=== PATIENT | male | born 1945 | race Caucasian/White ===

== ENCOUNTER → 2017-04-18 | Day surgery (SDC) | payer MEDICARE, OTHER ==
[~2017-04-18] MED LIST: AMLO5TAB2 PO; ASPI1TAB69 PO; CLOP75TA PO; CO Q100C9 PO; EXEN1INJ SQ; FENO50TA PO; FINA5TAB2 PO; GETGO ROLLING W1 MI1; KRIL1CAP9 PO; LACTATED RINGER'S 1,000 ML BAG IV ONE; LEVOTAB PO; METF850T PO; ONDANSETRON HCL 4 MG/2 ML VIAL IV PUSH ONE; OXYC1TAB63 PO; PANT40TA3 PO; PROPOFOL 500 MG/50 ML BTL IV ONE; ROSU20 PO; STOO100C PO; SUCR1TAB PO; TAMS0.4C4 PO; VITA500T49 PO; ZETI10TA5 PO
--- NOTE | 2017-04-18 12:17 | GIPROC ---
[facility] [address], [address] EGD PROCEDURE REPORT EXAM DATE: 04/18/2017 PATIENT NAME: Amando Allen MR #: [id number] BIRTHDATE: 1945 ATTENDING: Arabella Mitchell MD ORDER #: [id number] ROLL REPAIRER: Shonna Thapa CST STATUS: outpatient INDICATIONS: The patient is a 71 yr old male here for an EGD due to history of esophageal reflux PROCEDURE PERFORMED: EGD w/ biopsy MEDICATIONS: None and Per Anesthesia. TOPICAL ANESTHETIC: CONSENT: The patient understands the risks and benefits of the procedure and understands that these risks include, but are not limited to: sedation, allergic reaction, infection, perforation and/or bleeding. Alternative means of evaluation and treatment include, among others: physical exam, x-rays, and/or surgical intervention. The patient elects to proceed with this endoscopic procedure. medical equipment was checked for proper function. Hand hygiene and appropriate measures for infection prevention was taken. After the risks, benefits and alternatives of the procedure were thoroughly explained, Informed consent was verified, confirmed and timeout was successfully executed by the treatment team. The patient was anesthetized with topical anesthesia and the EC-3490Li ([id number]) endoscope was introduced through the mouth and advanced to the second portion of the duodenum. Retroflexed views revealed no abnormalities The gastroscope was then slowly withdrawn and removed. ESOPHAGUS: There was LA Class A esophagitis noted. A biopsy was performed using cold forceps. Sample sent for histology. STOMACH: There was erythematous moderate gastritis in the gastric antrum. A biopsy was performed using cold forceps. DUODENUM: The duodenal mucosa appeared normal. ADVERSE EVENTS: There were no complications. IMPRESSIONS: 1. There was LA Class A esophagitis noted; biopsy was performed 2. There was erythematous gastritis in the gastric antrum; biopsy was performed 3. Normal duodenal mucosa 4. Retroflexed views revealed no abnormalities RECOMMENDATIONS: 1. Await biopsy results. Biopsy results will not be ready for 7-10 days. If you don't hear from us in two weeks, call our office for biopsy results. 2. Anti-reflux regimen 3. Continue PPI PATIENT CONDITION: stable DISPOSITION: Home REPEAT EXAM: Return 1 year EGD pending biopsy results Arabella Mitchell MD eSigned: Arabella Mitchell MD 04/18/2017 12:16 PM cc: [facility] PATIENT NAME: Amando Allen MR#: [id number]
--- NOTE | 2017-04-18 12:35 | GIPROC ---
[facility] [address] [facility], [address] COLONOSCOPY PROCEDURE REPORT EXAM DATE: 04/18/2017 PATIENT NAME: Amando Allen MR #: [id number] BIRTHDATE: 1945 ENDOSCOPIST: Arabella Mitchell MD ORDER #: [id number] RESIDENT SURGEON: Shonna Thapa PULVERIZER STATUS: outpatient INDICATIONS: The patient is a 71 yr old male here for a colonoscopy due to high risk patient with personal history of colonic polyps PROCEDURE PERFORMED: Colonoscopy with biopsy MEDICATIONS: None and Per Anesthesia. PREP QUALITY: The Benge Bowel Prep Score was Right colon 2, Mid colon 2, and Left colon 3. Total = 7. PREP TYPE:GoLytely ESTIMATED BLOOD LOSS: None CONSENT: The patient understands the risks and benefits of the procedure and understands that these risks include, but are not limited to: sedation, allergic reaction, infection, perforation and/or bleeding. Alternative means of evaluation and treatment include, among others: physical exam, x-rays, and/or surgical intervention. The patient elects to proceed with this endoscopic procedure. medical equipment was checked for proper function. Hand hygiene and appropriate measures for infection prevention was taken. After the risks, benefits and alternatives of the procedure were thoroughly explained, Informed consent was verified, confirmed and timeout was successfully executed by the treatment team. A digital exam revealed external hemorrhoids and revealed decreased sphincter tone The EC-3490Li ([id number]) endoscope was introduced through the anus and advanced to the cecum, which was identified by both the appendix and ileocecal valve. The instrument was then slowly withdrawn as the colon was fully examined. COLON FINDINGS: A polypoid shaped flat polyp ranging between 3-5mm in size was found in the ascending colon. Multiple biopsies were performed using cold forceps. Retroflexed views revealed internal hemorrhoids The scope was then completely withdrawn from the patient and the procedure terminated. PROCEDURE WITHDRAWAL TIME:6minutes ADVERSE EVENTS: There were no complications. IMPRESSIONS: 1. A flat polyp ranging between 3-5mm in size was found in the ascending colon; multiple biopsies were performed using cold forceps 2. Retroflexed views revealed internal hemorrhoids 3. Revealed external hemorrhoids 4. Revealed decreased sphincter tone RECOMMENDATIONS: 1. Await biopsy results. Biopsy results will not be ready for 7-10 days. If you don't hear from us in two weeks, call our office for results. 2. Continue surveillance 3. High fiber diet RECALL: Return 3 years Colonoscopy, pending biopsy results Arabella Mitchell MD eSigned: Arabella Mitchell MD 04/18/2017 12:35 PM cc: Xiao Luevano [facility] Pinky and Quinten Blakely M.D.
== END | disposition home or self-care (01) ==
LOC: ESDC 10:37
PROVIDERS: ATTEND Internal Medicine Gastroenterology
DX: K21.9 Gastro-esophageal reflux disease without esophagitis (principal); K20.9 Esophagitis, unspecified; K29.70 Gastritis, unspecified, without bleeding; Z86.010 Personal history of colon polyps; D12.2 Benign neoplasm of ascending colon; K64.8 Other hemorrhoids
CPT/HCPCS: 00740; 00810; 43239; 45380; 88305; J7120; J2405

== ENCOUNTER → 2017-08-13 | Outpatient (CLI) | payer MEDICARE, OTHER ==
[~2017-08-13] MED LIST changes: +ASPI-110 PO; -GETGO ROLLING W1 MI1; -LACTATED RINGER'S 1,000 ML BAG IV ONE; -ONDANSETRON HCL 4 MG/2 ML VIAL IV PUSH ONE; +PERC5TAB12 PO; -PROPOFOL 500 MG/50 ML BTL IV ONE; +RANI150T PO; +TEMA15CA PO; +TIOT1AER INH
[2017-08-13 11:14] LABS: PROTHROMBIN TIME - PATIENT 10.9 SEC (9.8-11.6)
[2017-08-13 11:17] LABS: MEAN CELL VOLUME 88.8 FL (80.0-100.0); MEAN CORPUSCULAR HEMOGLOBIN 29.7 PG (27.0-34.0); MEAN CORPUSCULAR HGB CONC 33.5 % (32.0-36.0); PLATELET COUNT 148 TH/MM3 (150-450); RED BLOOD COUNT 3.94 MIL/MM3 (4.50-5.90); RED CELL DISTRIBUTION WIDTH 19.5 % (11.6-17.2); WHITE BLOOD COUNT 9.6 TH/MM3 (4.0-11.0)
[2017-08-13 11:21] LABS: REVIEW FLAG FINAL
[2017-08-13 11:33] LABS: BICARBONATE 25.1 MEQ/L (21.0-32.0); POTASSIUM 3.8 MEQ/L (3.5-5.1)
--- NOTE | 2017-08-13 11:47 | RADRPT ---
EXAM DATE/TIME: 08/13/2017 11:31 [place] COMPARISON: No previous studies available for comparison. INDICATIONS : Evaluate for pneumonia, pneumothorax, or communicable disease. Pre op Aortic surgery. MEDICAL HISTORY : None. SURGICAL HISTORY : CABG. ENCOUNTER: Initial ACUITY: 1 day PAIN SCORE: 0/10 LOCATION: Bilateral chest FINDINGS: The heart is normal in size. The patient is post median sternotomy. The top 3 sternal wires are no lo nger intact. The lungs are clear. The bony structures are grossly intact. CONCLUSION: 1. No acute cardiopulmonary findings. James Lobo MD on August 13, 2017 at 11:45 Board Certified Radiologist. This report was verified electronically.
[2017-08-13 12:15] LABS: BLOOD, URINE NEG (NEG); COMMENT (UR) CULT NOT INDICATED; CULTURE IF INDICATED CULT NOT INDICATED; GLUCOSE,URINE 150 mg/dL (NEG); HYALINE CAST, URINE 1 /lpf (RARE); KETONE, URINE NEG (NEG); MUCUS URINE FEW /lpf (OCC); NITRITE,URINE NEG (NEG); PH, URINE 5.5 (5.0-8.5); URINE COLOR YELLOW (YELLW/STRAW)
--- NOTE | 2017-08-13 21:01 | EKG ---
Date Performed: 08/13/2017 Time Performed: 10:36:46 PTAGE: 72 years EKG: Sinus rhythm POSSIBLE INFERIOR MYOCARDIAL INFARCTION, PROBABLY OLD BORDERLINE ECG PREVIOUS TRACING : 11/18/2016 10.41 Compared to prior tracing no significant change DOCTOR: Sandra Polanco Interpretating Date/Time 08/13/2017 21:01:23
== END ==
LOC: CPRE 10:12
PROVIDERS: ATTEND Surgery
DX: Z01.812 Encounter for preprocedural laboratory examination (principal); Z01.810 Encounter for preprocedural cardiovascular examination; Z01.811 Encounter for preprocedural respiratory examination; I73.9 Peripheral vascular disease, unspecified; I71.4 Abdominal aortic aneurysm, without rupture
CPT/HCPCS: 36415; 71020; 80048; 81001; 85027; 85610; 93005

== ENCOUNTER 2017-08-20 08:00 | Inpatient (IN) | payer MEDICARE, OTHER ==
[~2017-08-20] VITALS: Ht 167.6 cm; Wt 81.5 kg
[~2017-08-20 08:00] MED LIST changes: -ASPI1TAB69 PO; -PERC5TAB12 PO; -RANI150T PO; -TEMA15CA PO; -TIOT1AER INH
[2017-08-25] VITALS (9 sets, daily range): BP systolic 120–134; BP diastolic 57–62; PULSE 86–94; RESP 16–19; TEMP 98–98.5; O2SAT 95–98
[2017-08-25] MEDS ORDERED: RANI150T PO ×2 (07:45)
[2017-08-25] MEDS ORDERED: SODIUM CHLORID 0.9% 500 ML IV PRN (07:45)
[2017-08-25] MEDS ORDERED: POVIDONE IODINE 5% (ANTISEPSIS KIT) 4 APPLICATIONS EACH NARE PRN (07:45)
[2017-08-25] MEDS ORDERED: CHLORHEXIDINE GLUCONATE 2 % 1 PACK (2 CLOTHS) TOPICAL PRN (07:45)
[2017-08-25] MEDS ORDERED: TIOT1AER INH (07:45)
[2017-08-25] MEDS ORDERED: LACTATED RINGER'S 1000 ML IV PRN (07:45)
[2017-08-25] MEDS ORDERED: TEMA15CA PO (07:45)
[2017-08-25] MEDS ORDERED: INSULIN HUMAN REGULAR 1,000 UNITS/10 ML VIAL SQ PRN (07:45)
[2017-08-25] MEDS ORDERED: METOPROLOL TARTRATE 25 MG TAB PO PRN (07:45)
[2017-08-25] MEDS ORDERED: ACETAMINOPHEN 1000 MG/100 ML 100 ML IV ONE (08:22)
[2017-08-25] MEDS ORDERED: FAMOTIDINE 20 MG/2 ML VIAL ONE (08:23)
[2017-08-25] MEDS ORDERED: MIDAZOLAM HCL 2 MG/2 ML VIAL ONE (08:23)
--- NOTE | 2017-08-25 08:54 | HHI.HP ---
History of Present Illness Chief Complaint: AAA, PAD History of Present Illness 72 yo male with AAA and PAD. S/p L L bypass x 2, most recently in Oct. Has had AAA that is being observed for some time but now is 5.2 cm. After discussion of risks and benefits with the patient, he would like it repaired. In order to place EVAR, he needs R TRAVELING CRANE OPERATOR reconstruction. No interval change in history that would preclude surgery Past/Family/Social History Past Medical History HTN AAA PAD Past Surgical History L LE bypass x 2 Social History nonsmoker Family History NC Home Medications Reported Medications Temazepam (Temazepam) 15 Mg Cap, 15 MG PO HS Y for INSOMNIA, #30 CAP 0 Refills 08/25/17 Tiotropium-Olodaterol Inh (Stiolto Respimat Inh) 2.5-2.5 Mcg/Act Aero, 2 PUFF INH DAILY for COPD, #1 INHALER 0 Refills 08/25/17 Ranitidine (Ranitidine) 150 Mg Tab, 300 MG PO HS for Heartburn Management, #30 TAB 0 Refills 08/25/17 Ranitidine (Ranitidine) 150 Mg Tab, 150 MG PO DAILYAC Y for REFLUX, #30 TAB 0 Refills 08/25/[address] (Aspirin 81) 81 Mg Tabdr, 81 MG PO DAILY, TAB 0 Refills 08/13/17 Amlodipine (Amlodipine) 5 Mg Tab, 2.5 MG PO DAILY for Blood Pressure Management , #30 TAB 0 Refills 11/14/16 Pantoprazole (Pantoprazole) 40 Mg Tab, 40 MG PO BID for Reflux, #30 TAB 0 Refills 11/14/16 Krill Oil (Megared [place]-3 Krill Oil) 500 Mg Cap, 500 MG PO DAILY 11/14/16 Cyanocobalamin (Vitamin B12) 500 Mcg Tab, 1000 MCG PO DAILY, #1 BOTTLE 11/14/16 Clopidogrel (Clopidogrel) 75 Mg Tab, 75 MG PO DAILY for Blood Clot Prevention, # 30 TAB 0 Refills 11/14/16 Fenofibrate (Tricor) 145 Mg Tab, 145 MG PO DAILY, #30 TAB 0 Refills Takw with food. 11/14/16 Finasteride (Finasteride) 5 Mg Tab, 5 MG PO DAILY for Manage Prostate Problems, #30 TAB 0 Refills Do not crush. 12/15/16 Ezetimibe (Zetia) 10 Mg Tab, 10 MG PO HS, #30 TAB 0 Refills 11/14/16 Levocetirizine (Levocetirizine) 5 Mg Tab, 5 MG PO DAILY for Allergy Management, #30 TAB 0 Refills 11/14/16 Docusate Sodium (Stool Softener) 100 Mg Cap, 100 MG PO DAILY 11/14/16 Tamsulosin (Tamsulosin) 0.4 Mg Cap, 0.4 MG PO HS for Manage Prostate Problems, # 30 CAP 0 Refills 11/14/16 Metformin (Metformin) 850 Mg Tab, 850 MG PO BIDPC for Blood Sugar Management, TAB 0 Refills With meals 11/14/16 Rosuvastatin (Crestor) 20 Mg Tab, 20 MG PO HS for Cholesterol Management, #30 TAB 0 Refills 11/14/16 Coenzyme Q10 (Ubidecarenone) (Co Q 10) 100 Mg Cap, 100 MG PO DAILY 11/14/16 Exenatide Pen Inj (Bydureon Pen Inj) 2 Mg Pfpen, 2 MG SQ Q7D for Blood Sugar Management, #4 INJECTION 0 Refills 11/14/16 Discontinued Reported Medications Sucralfate (Sucralfate) 1 Gm Tab, 1 GM PO BID for Duodenal ulcer, #120 TAB 0 Refills on empty stomach 11/14/16 Discontinued Scripts Oxycodone-Acetaminophen (Oxycodone-Acetaminophen) 5-325 mg Tab, 1 TAB PO Q4H Y for PAIN SCALE 1 TO 5 for 30 Days, TAB 0 Refills Prov:Huy Wagner MD 11/21/16 Coded Allergies: Sulfa (Sulfonamide Antibiotics) (Unverified Allergy, Severe, 08/25/17) penicillin G (Unverified Allergy, Severe, 08/25/17) Review of Systems Constitutional: DENIES: Fatigue, Fever Gastrointestinal: DENIES: Abdominal pain Physical Exam Vitals/I&O Date Time Temp Pulse Resp B/P (MAP) Pulse Ox O2 Delivery O2 Flow Rate FiO2 08/25/17 07:45 98.5 72 16 152/77 (102) 96 Neuro: alert, oriented HEENT: anicteric sclera Neck: no JVD Heart: reg rate, no M; S2 split noted Lungs: clear B Abdomen: NT Vascular: palpable femoral pulses Extremities: no lesions Hct 35 plt 148 INR 1.0 cr 1.2 Caprini VTE Risk Assessment Caprini VTE Risk Assessment: Mod/High Risk (score >= 2) Caprini Risk Assessment Model Point Value = 1 Point Value = 2 Point Value = 3 Point Value = 5 Age 41-60 Minor surgery BMI > 25 kg/m2 Swollen legs Varicose veins or History of unexplained or recurrent spontaneous Oral contraceptives or hormone replacement Sepsis (< 1 month) Serious lung disease, including pneumonia (< 1 month) Abnormal pulmonary function Acute myocardial infarction Congestive heart failure (< 1 month) History of inflammatory bowel disease Medical patient at bed rest Age 61-74 Arthroscopic surgery Major open surgery (> 45 min) Laparoscopic surgery (> 45 min) Malignancy Confined to bed (> 72 hours) Immobilizing plaster cast Central venous access Age >= 75 History of VTE Family history of VTE Factor V Leiden Prothrombin [id number] Lupus anticoagulant Anticardiolipin antibodies Elevated serum homocysteine Heparin-induced thrombocytopenia Other congenital or acquired thrombophilia Stroke (< 1 month) Elective arthroplasty Hip, pelvis, or leg fracture Acute spinal cord injury (< 1 month) Prophylaxis Regimen Total Risk Factor Score Risk Level Prophylaxis Regimen 0-1 Low Early ambulation 2 Moderate Order ONE of the following: *Sequential Compression Device (SCD) *Heparin 5000 units SQ BID 3-4 Higher Order ONE of the following medications: *Heparin 5000 units SQ TID *Enoxaparin/Lovenox 40 mg SQ daily (WT < 150 kg, CrCl > 30 mL/min) *Enoxaparin/Lovenox 30 mg SQ daily (WT < 150 kg, CrCl > 10-29 mL/min) *Enoxaparin/Lovenox 30 mg SQ BID (WT < 150 kg, CrCl > 30 mL/min) AND/OR *Sequential Compression Device (SCD) 5 or more Highest Order ONE of the following medications: *Heparin 5000 units SQ TID (Preferred with Epidurals) *Enoxaparin/Lovenox 40 mg SQ daily (WT < 150 kg, CrCl > 30 mL/min) *Enoxaparin/Lovenox 30 mg SQ daily (WT < 150 kg, CrCl > 10-29 mL/min) *Enoxaparin/Lovenox 30 mg SQ BID (WT < 150 kg, CrCl > 30 mL/min) AND *Sequential Compression Device (SCD) Assessment and Plan Plan To OR for R TRAVELING CRANE OPERATOR TEA and patch, then EVAR Pt understands risks, benefits Discharge Planning 2 days [phone] Huy Wagner MD Aug 25, 2017 08:53
[2017-08-25] MEDS ORDERED: HEPARIN SODIUM - IV 10,000 UNITS/10 ML VIAL ONE ×2 (10:07→13:24)
[2017-08-25] MEDS ORDERED: PROTAMINE SULFATE 50 MG/5 ML VIAL ONE (10:07)
[2017-08-25] MEDS ORDERED: BUPIVACAINE HCL PF 0.5% 30 ML VIAL ONE (10:08)
[2017-08-25] MEDS ORDERED: THROMBIN (TOPICAL) 20,000 UNIT SPRAY KIT ONE (10:08)
[2017-08-25] MEDS ORDERED: VANCOMYCIN HCL 1000 MG VIAL ONE (10:30)
[2017-08-25] MEDS ORDERED: ACETYLCYSTEINE 20% ORAL SOLN 4 ML VIAL PO SCH (11:00)
[2017-08-25] MEDS ORDERED: SODIUM BICARBONATE 8.4% INJ 150 MEQ in DEXTROSE 5% IN WATE 1000ML INJ 1,000 ML IV SCH ×2 (11:30)
[2017-08-25] MEDS ORDERED: PHENYLEPHRINE HCL 10 MG/ML VIAL IV ONE (12:00)
[2017-08-25] MEDS ORDERED: SODIUM CHLOR 0.9% 250 ML INJ 500 ML IV ONE (12:00)
[2017-08-25] MEDS ORDERED: LACTATED RINGER'S 1000 ML INJ 1,000 ML IV ONE (12:00)
[2017-08-25] MEDS ORDERED: MORPHINE SULFATE 4 MG/ML INJ IV ONE (12:00)
[2017-08-25] MEDS ORDERED: ROCURONIUM INJ 50 MG/5 ML SYRINGE IV PUSH ONE (12:00)
[2017-08-25] MEDS ORDERED: ONDANSETRON HCL 4 MG/2 ML VIAL IV PUSH ONE (12:00)
[2017-08-25] MEDS ORDERED: PROPOFOL 200 MG/20 ML AMP IV ONE (12:00)
[2017-08-25] MEDS ORDERED: PHENYLEPH/NS 1000 MCG/10 ML SYR IV ONE (12:00)
[2017-08-25] MEDS ORDERED: ePHEDrine/NS 25 MG/5 ML SYR IV ONE (12:00)
[2017-08-25] MEDS ORDERED: SODIUM CHLORID 0.9% 500 ML INJ 500 ML IV ONE (12:00)
[2017-08-25] MEDS ORDERED: NORMOSOL R INJ 2,000 ML IV ONE (12:00)
[2017-08-25] MEDS ORDERED: LIDOCAINE HCL 1% PF 5 ML AMPULE OTHER ONE (12:00)
[2017-08-25] MEDS ORDERED: IOHEXOL 350 MG/ML 50 ML BTL (for RAD DIAG) IVCONTRAST ONE (12:49)
--- NOTE | 2017-08-25 14:31 | HHI.PR ---
cc: Geoffrey Mcgrath MD Immediate Post Op Note Procedure Date: Aug 25, 2017 Pre Op Diagnosis: AAA, PAD Post Op Diagnosis: AAA, PAD Surgeon: Huy Wagner Laborer Wrecking And Salvaging(s): none Procedure: 1. EVAR with Endologix device and aortic cuff 2. U/S access to L MASTER TECHNICIAN 3. R iliofemoral bypass w 8mm Dacron 4. R MASTER TECHNICIAN-SFA bypass w 8mm Dacron 5. R EIA END LATHE OPERATOR (8mm) Findings: successful exclusion of aneurysm patent B renal arteries patent B hypogastric arteries Additional Information: + Doppler signals B LE Complications: none apparent Specimen(s) removed: none for pathology Estimated blood loss: 200mL Anesthesia: General Drains: None Fluids: 2600mL; 1175mL UOP IVF Patient to: PACU Patient Condition: Good Implant/Devices: SEE IMPLANT LOG (if applicable) Date/Time of Procedure: SEE SURGICAL CARE RECORD Huy Wagner MD Aug 25, 2017 14:31
[2017-08-25] MEDS ORDERED: MORPHINE SULFATE 4 MG/ML INJ IV PRN (14:45)
[2017-08-25] MEDS ORDERED: DO NOT ADM ANY ANTICOAGULANT DRUGS PRN (14:57)
[2017-08-25] MEDS ORDERED: PILL SPLITTER OTHER PRN (15:00)
[2017-08-25] MEDS ORDERED: IOHEXOL 300 MG/ML 100 ML BTL (for Rad CT) OTHER ONE (15:05)
[2017-08-25] MEDS: LACTATED RINGER'S 1000 ML INJ 1,000 ML IV SCH ×2 (15:30→16:15)
[2017-08-25] MEDS ORDERED: *morphine SULFATE 8 MG/ML PERIprocedure ONLY ONE ×2 (15:43→15:57)
[2017-08-25] MEDS ORDERED: PANTOPRAZOLE SOD 40 MG DELAYED RELEASE TAB PO ONE (20:57)
[2017-08-25] MEDS ORDERED: DOCUSATE SODIUM 100 MG CAP ONE (20:57)
[2017-08-25] MEDS ORDERED: ATORVASTATIN 40 MG TAB ONE (20:57)
[2017-08-25] MEDS ORDERED: TAMSULOSIN HCL 0.4 MG CAP ONE (20:58)
[2017-08-25] MEDS ORDERED: FAMOTIDINE 20 MG TAB PO SCH (21:00)
[2017-08-25] MEDS ORDERED: TEMAZEPAM 15 MG CAP PO PRN (21:00)
[2017-08-25] MEDS: DOCUSATE SODIUM 100 MG CAP PO SCH (21:16)
[2017-08-25] MEDS: PANTOPRAZOLE SOD 40 MG DELAYED RELEASE TAB PO SCH (21:16)
[2017-08-25] MEDS: EZETIMIBE 10 MG TAB PO SCH (21:16)
[2017-08-25] MEDS: ATORVASTATIN 40 MG TAB PO SCH (21:17)
[2017-08-25] MEDS: TAMSULOSIN HCL 0.4 MG CAP PO SCH (21:17)
[2017-08-26] VITALS (27 sets, daily range): BP systolic 125–164; BP diastolic 64–96; PULSE 82–100; RESP 16–20; TEMP 98.8–100.1; O2SAT 96–97
[2017-08-26] MEDS ORDERED: WATE IV SCH ×2 (00:01)
[2017-08-26] MEDS ORDERED: DEXTROSE 5% IV SCH ×2 (00:01)
[2017-08-26] MEDS ORDERED: SODIUM BICARB IV SCH ×2 (00:01)
[2017-08-26] MEDS: LACTATED RINGER'S 1000 ML INJ 1,000 ML IV SCH (04:21)
[2017-08-26 06:03] LABS: HEMATOCRIT 25.2 % (39.0-51.0); MEAN CELL VOLUME 88.9 FL (80.0-100.0); MEAN CORPUSCULAR HEMOGLOBIN 30.8 PG (27.0-34.0); MEAN CORPUSCULAR HGB CONC 34.6 % (32.0-36.0); PLATELET COUNT 112 TH/MM3 (150-450); RED BLOOD COUNT 2.84 MIL/MM3 (4.50-5.90); RED CELL DISTRIBUTION WIDTH 20.1 % (11.6-17.2); REVIEW FLAG FINAL; WHITE BLOOD COUNT 9.2 TH/MM3 (4.0-11.0)
[2017-08-26 06:26] LABS: BICARBONATE 26.7 MEQ/L (21.0-32.0); POTASSIUM 3.6 MEQ/L (3.5-5.1)
[2017-08-26 06:43] LABS: CALCIUM-PROTEIN CORRECTED 8.1 MG/DL (8.5-10.1)
[2017-08-26] MEDS: ASPIRIN EC 81 MG TABEC PO SCH (08:55)
[2017-08-26] MEDS: amLODIPine BESYLATE 5 MG TAB PO SCH (08:55)
[2017-08-26] MEDS: DOCUSATE SODIUM 100 MG CAP PO SCH ×2 (08:56→21:00)
[2017-08-26] MEDS: FENOFIBRATE 145 MG TAB PO SCH (08:56)
[2017-08-26] MEDS: CLOPIDOGREL 75 MG TAB PO SCH (08:56)
[2017-08-26] MEDS: PANTOPRAZOLE SOD 40 MG DELAYED RELEASE TAB PO SCH ×2 (08:56→21:00)
[2017-08-26] MEDS ORDERED: LEVOCETIRIZINE 5 MG PO SCH (09:00)
[2017-08-26] MEDS ORDERED: RESPIMAT INH SCH (09:00)
[2017-08-26] MEDS ORDERED: KRILL OIL 500 MG PO SCH (09:00)
[2017-08-26] MEDS ORDERED: NON-FORMULARY DRUG (Coenzyme Q10 (Ubidecarenone) (Co Q 10) 100 MG) PO SCH (09:00)
[2017-08-26] MEDS ORDERED: STIOLTO INH SCH (09:00)
--- NOTE | 2017-08-26 09:25 | PD.VS.PN ---
Subjective POD #: 1 Procedure(s): EVAR, R groin reconstruction Subjective/Hospital Course feels well, c/o soreness in R groin feet ok Objective Vitals/I&O Date Time Temp Pulse Resp B/P (MAP) Pulse Ox O2 Delivery O2 Flow Rate FiO2 08/26/17 07:15 96 Nasal Cannula 2.00 08/26/17 07:15 100.1 86 20 164/74 (104) 96 08/26/17 07:15 88 08/26/17 06:03 86 08/26/17 05:05 90 08/26/17 04:00 90 08/26/17 03:00 82 08/26/17 03:00 96 Nasal Cannula 2.00 08/26/17 03:00 99.0 92 16 142/70 (94) 96 08/26/17 02:02 90 08/26/17 01:00 92 08/26/17 00:00 90 08/25/17 23:00 98.5 90 16 126/62 (83) 95 08/25/17 23:00 95 Nasal Cannula 2.00 08/25/17 23:00 90 08/25/17 22:20 16 08/25/17 22:00 88 08/25/17 21:00 86 08/25/17 20:00 94 08/25/17 19:00 98 Nasal Cannula 2.00 08/25/17 19:00 86 08/25/17 19:00 98.0 94 16 134/61 (85) 98 08/25/17 18:00 92 08/25/17 17:00 89 08/25/17 16:30 90 08/25/17 16:10 98.4 94 19 120/57 (78) 97 08/25/17 16:10 97 Nasal Cannula 2.00 08/25/17 15:45 91 18 131/60 (83) 99 Nasal Cannula 2 08/25/17 15:30 93 18 136/56 (82) 99 Nasal Cannula 2 08/25/17 15:15 93 18 142/65 (90) 99 Nasal Cannula 2 08/25/17 14:57 98.3 100 18 109/59 (76) 97 Nasal Cannula 2 08/26/17 08/26/17 08/26/17 07:00 15:00 23:00 Intake Total 1030 ml Output Total 500 ml Balance 530 ml Exam: R groin skin vac in place groin soft palpable L DP Biphasic R PT Laboratory Laboratory Tests Test 08/26/17 05:24 White Blood Count 9.2 Red Blood Count 2.84 Hemoglobin 8.7 Hematocrit 25.2 Mean Corpuscular Volume 88.9 Mean Corpuscular Hemoglobin 30.8 Mean Corpuscular Hemoglobin Concent 34.6 Red Cell Distribution Width 20.1 Platelet Count 112 Mean Platelet Volume 7.8 Blood Urea Nitrogen 9 Creatinine 1.03 Random Glucose 178 Total Protein 5.8 Calcium Level 7.4 Sodium Level 138 Potassium Level 3.6 Chloride Level 104 Carbon Dioxide Level 26.7 Anion Gap 7 Estimat Glomerular Filtration Rate 71 Protein Corrected Calcium 8.1 Assessment and Plan Plan POD#1 s/p R groin reconstruction, EVAR 1. Reg diet, meds 2. HL IVF 3. D/C [place] 4. OOB TC/PT Discharge Planning 2-3 days Huy Wagner MD Aug 26, 2017 09:25
--- NOTE | 2017-08-26 09:29 | PD.VS.PN ---
Subjective POD #: 1 Procedure(s): EVAR with Endologix device and aortic cuff R iliofemoral bypass R ESCALATOR SERVICE MECHANIC-SFA bypass R EIA LABELER Subjective/Hospital Course Pt c/o fever, flatulence and generalized pain [place] intact Objective Vitals/I&O Date Time Temp Pulse Resp B/P (MAP) Pulse Ox O2 Delivery O2 Flow Rate FiO2 08/26/17 07:15 96 Nasal Cannula 2.00 08/26/17 07:15 100.1 86 20 164/74 (104) 96 08/26/17 07:15 88 08/26/17 06:03 86 08/26/17 05:05 90 08/26/17 04:00 90 08/26/17 03:00 82 08/26/17 03:00 96 Nasal Cannula 2.00 08/26/17 03:00 99.0 92 16 142/70 (94) 96 08/26/17 02:02 90 08/26/17 01:00 92 08/26/17 00:00 90 08/25/17 23:00 98.5 90 16 126/62 (83) 95 08/25/17 23:00 95 Nasal Cannula 2.00 08/25/17 23:00 90 08/25/17 22:20 16 08/25/17 22:00 88 08/25/17 21:00 86 08/25/17 20:00 94 08/25/17 19:00 98 Nasal Cannula 2.00 08/25/17 19:00 86 08/25/17 19:00 98.0 94 16 134/61 (85) 98 08/25/17 18:00 92 08/25/17 17:00 89 08/25/17 16:30 90 08/25/17 16:10 98.4 94 19 120/57 (78) 97 08/25/17 16:10 97 Nasal Cannula 2.00 08/25/17 15:45 91 18 131/60 (83) 99 Nasal Cannula 2 08/25/17 15:30 93 18 136/56 (82) 99 Nasal Cannula 2 08/25/17 15:15 93 18 142/65 (90) 99 Nasal Cannula 2 08/25/17 14:57 98.3 100 18 109/59 (76) 97 Nasal Cannula 2 08/26/17 08/26/17 08/26/17 07:00 15:00 23:00 Intake Total 1030 ml Output Total 500 ml Balance 530 ml Exam: GENERAL: A&OX3, GCS15,NAD SKIN: Warm and dry Provena wound vac to right groin in place w/o hematoma CARDIOVASCULAR: +S1,S2 GASTROINTESTINAL: S/NT MUSCULOSKELETAL: LE warm w/ motor intact No cyanosis, or edema Triphasic R DP/PT heard via Doppler Palpable L DP Triphasic L PT heard via Doppler Laboratory Laboratory Tests Test 08/26/17 05:24 White Blood Count 9.2 Red Blood Count 2.84 Hemoglobin 8.7 Hematocrit 25.2 Mean Corpuscular Volume 88.9 Mean Corpuscular Hemoglobin 30.8 Mean Corpuscular Hemoglobin Concent 34.6 Red Cell Distribution Width 20.1 Platelet Count 112 Mean Platelet Volume 7.8 Blood Urea Nitrogen 9 Creatinine 1.03 Random Glucose 178 Total Protein 5.8 Calcium Level 7.4 Sodium Level 138 Potassium Level 3.6 Chloride Level 104 Carbon Dioxide Level 26.7 Anion Gap 7 Estimat Glomerular Filtration Rate 71 Protein Corrected Calcium 8.1 Assessment and Plan Assessment: (1) AAA (abdominal aortic aneurysm) (2) left fem pop bypass Status: Chronic (3) Claudication Status: Chronic Plan Pt s/p POD 1- R ESCALATOR SERVICE MECHANIC TEA and patch, then EVAR Pt with mild discomfort, as expected on POD 1 Pt otherwise doing well Pt denies abdominal/back pain Plan D/C [place]- call if patient has not voided in 6h D/C MIVF Acetaminophen ordered PRN for fever PT/OOB TC Continue pulse checks Tori RUST [facility] [employer] (PIROX) [phone] Discharge Planning 2 days [phone] Tori Davison Aug 26, 2017 09:29
[2017-08-26] MEDS ORDERED: DEXTROSE 50% IN WATER 50 ML VIAL(D50) IV PUSH PRN (09:30)
[2017-08-26] MEDS ORDERED: ACETAMINOPHEN 325 MG TAB PO PRN (09:30)
[2017-08-26] MEDS ORDERED: GLUCAGON 1 MG/ML VIAL OTHER PRN (09:30)
--- NOTE | 2017-08-26 09:44 | MP ---
cc: HUY WAGNER MD DATE OF SURGERY: 08/25/2017 PREOPERATIVE DIAGNOSIS 1. Abdominal aortic aneurysm. 2. Peripheral arterial occlusive disease. POSTOPERATIVE DIAGNOSIS 1. Abdominal aortic aneurysm. 2. Peripheral arterial occlusive disease. PROCEDURE 1. Unibody EVAR (endovascular aortic aneurysm repair). 2. Aortic proximal extension. 3. Ultrasound-guided access to left common femoral artery. 4. Right external iliac artery angioplasty. 5. Right iliofemoral bypass with 8 mm Dacron. 6. Right common femoral to superficial femoral artery bypass with 8 mm Dacron. ATTENDING SURGEON Huy Wagner. ANESTHESIA General. INDICATION Mr. Allen is a gentleman with 5.2 cm abdominal aortic aneurysm and peripheral arterial occlusive disease. After a thorough discussion of the risks and benefits the patient was offered an EVAR. Prior to doing this it was felt that he needed a right groin reconstruction to facilitate graft delivery. DESCRIPTION OF PROCEDURE Informed consent was obtained. The patient was taken to the operating room and placed supine on the operating table. An appropriate timeout was taken to ensure the patient's identity, operative site and planned procedure. The administration of a gram of vancomycin was initiated prior to skin incision and will be discontinued after a single preoperative dose. Vancomycin was chosen because of the patient's penicillin allergy. Everyone in the room agreed with the timeout and we proceeded. He was prepped from his nipples to his knees. A vertical incision was made in the patient's right groin and carried down to subcutaneous tissue with electrocautery. The distal external iliac artery, superficial femoral artery and profunda were all dissected free. We dissected the profunda down to the second order branches of the proximal profunda which had an intense calcific stenosis. Once the right groin was completely dissected free an ultrasound was used to gain access to the proximal aspect of the previously repaired left common femoral artery. This was done with a 21-gauge micropuncture needle and exchanged using Seldinger's technique for a micropuncture sheath through which a 0.035 Storq wire was introduced and the micropuncture sheath was changed for a 6 Jamaican sheath. The sheath was flushed and left in place. The patient was systemically heparinized and throughout the remainder of the case ACT was greater than 250. Proximal and distal control of the external iliac artery on the right, superficial femoral artery and profunda on the right were all obtained with profunda clamps and a longitudinal arteriotomy was made extending from the proximal common femoral artery extending past the femoral bifurcation down into the profunda. The common femoral artery and profunda femoris were all endarterectomized without difficulty and a 1 x 6 bovine pericardial patch was brought up on the field and sewn on using running 5-0 Prolene suture. The clamps were released and hemostasis was achieved. There was a nice pulse in both the SFA and the profunda. A 21-gauge micropuncture needle was used to access the middle of the graft. This was exchanged using Seldinger's technique for a micropuncture sheath through which a 0.035 Storq wire was introduced and the micropuncture sheath exchanged for an 8 Jamaican sheath. A retrograde iliac angiogram confirmed the patient's known right external iliac artery stent to be slightly stenotic and as the Storq wire was advanced into the aorta, an 8 x 80 balloon was used to angioplasty the external iliac artery. The completion angiogram showed excellent result without any recoil or extravasation. The Storq wire was exchanged for a Lunderquist wire and the 8 Jamaican sheath was exchanged for the 17 Jamaican Endologix sheath. The main body was delivered into the aorta. The main body was an Endologix AFX 22 x 80/16-40. This was delivered maintaining proper orientation and once it was at the aortic bifurcation the contralateral wire was advanced slightly. Through the 6 Jamaican sheath on the left a cloverleaf snare was advanced and the contralateral limb wire from the AFX system was snared and pulled out the left-hand 6 Jamaican sheath. The device was then advanced to the aorta and deployed down to the bifurcation with the contralateral limb being deployed down to the left common iliac artery. The device was deployed without difficulty. The right common iliac limb remained in the sheath. A pigtail catheter was placed over the wire on the left-hand side and the wire was completed dissociated from the delivery system. An angiogram confirmed that the graft was in good position well below the renal arteries. Through the pigtail catheter on the left. A Storq wire was then placed and the left limb was balloon angioplastied with a 10 mm balloon. Over the Storq wire a marker flush straight catheter was placed and the remainder of the device was deployed without difficulty and then the delivery system was removed. A 10 mm balloon was used to balloon the right limb which was done without difficulty. The dilator for the 17 Jamaican sheath was then reintroduced and the 17 Jamaican sheath was advanced back through the device up into the pararenal aorta. An angiogram confirmed the location of the renal arteries and a proximal cuff was then inserted through the 17-Jamaican sheath. This cuff was a 25 x 95 aortic cuff without suprarenal fixation and this was deployed so the proximal aspect of the fabric was immediately caudal to the renal arteries. The device was deployed without difficulty. The delivery system was removed. Clamps were re-applied to the patch to provide hemostasis while the patchotomy was closed with interrupted 5-0 Prolene suture. There was a nice Doppler signal in the left foot but not in the right. As such the clamps were re-applied, the entire patch was disassembled, and the common femoral artery was resected. An 8 mm Dacron was brought up onto the field and sewn end-to-end to the external iliac artery and end-to-end to the second order profunda bifurcation with running 5-0 Prolene suture. At the completion it was flushed and noted to be hemostatic. The graft was then clamped and a longitudinal graftotomy was made with an 11 blade extended with [place] scissors. A second part of the 8 mm Dacron was beveled and sewn end-to-side to the previous ilioprofunda bypass using running 5-0 Prolene suture and then end-to-end to the SFA using running 5-0 Prolene suture. All the clamps were released. Hemostasis was achieved in the groin. There were Doppler signals in both feet. The heparin was reversed with protamine. The 6 Jamaican sheath was removed and manual pressure was held. The right groin wound was irrigated, made hemostatic and closed with 2-0 Polysorb, 3-0 Polysorb and 4-0 Monocryl. The sponge and needle counts were correct at the end of the case. I was present and scrubbed and performed the entire procedure. MD JIA Fair/CATE /5:09 AM /9:11 AM
[2017-08-26] MEDS ORDERED: INSULIN NovoLIN REGULAR SUPPLEMENTAL SCALE SQ SCH (12:00)
[2017-08-26] MEDS: ENOXAPARIN SODIUM 30 MG/0.3 ML SYRINGE SQ SCH (13:44)
[2017-08-26] MEDS: metFORMIN HCL 850 MG TAB PO SCH (17:59)
[2017-08-26] MEDS: TAMSULOSIN HCL 0.4 MG CAP PO SCH (21:00)
[2017-08-26] MEDS: ATORVASTATIN 40 MG TAB PO SCH (21:00)
[2017-08-26] MEDS: EZETIMIBE 10 MG TAB PO SCH (21:00)
[2017-08-26] MEDS: ACETYLCYSTEINE 20% 6,000 MG/30 ML ORAL SOLN VIAL PO SCH (21:46)
[2017-08-27] VITALS (29 sets, daily range): BP systolic 104–171; BP diastolic 58–83; PULSE 81–103; RESP 16–18; TEMP 97.5–99.2; O2SAT 95–98
[2017-08-27 06:01] LABS: MEAN CELL VOLUME 89.8 FL (80.0-100.0); MEAN CORPUSCULAR HEMOGLOBIN 30.1 PG (27.0-34.0); MEAN CORPUSCULAR HGB CONC 33.5 % (32.0-36.0); PLATELET COUNT 94 TH/MM3 (150-450); RED BLOOD COUNT 2.31 MIL/MM3 (4.50-5.90); RED CELL DISTRIBUTION WIDTH 19.8 % (11.6-17.2); WHITE BLOOD COUNT 5.1 TH/MM3 (4.0-11.0)
[2017-08-27 06:18] LABS: REVIEW FLAG FINAL
[2017-08-27 06:23] LABS: HEMATOCRIT 20.8 % (39.0-51.0)
[2017-08-27] MEDS: ASPIRIN EC 81 MG TABEC PO SCH (08:50)
[2017-08-27] MEDS: metFORMIN HCL 850 MG TAB PO SCH ×2 (08:50→17:16)
[2017-08-27] MEDS: PANTOPRAZOLE SOD 40 MG DELAYED RELEASE TAB PO SCH ×2 (08:50→21:11)
[2017-08-27] MEDS: FINASTERIDE 5 MG TAB PO SCH (08:50)
[2017-08-27] MEDS: CLOPIDOGREL 75 MG TAB PO SCH (08:51)
[2017-08-27] MEDS: DOCUSATE SODIUM 100 MG CAP PO SCH ×2 (08:51→21:12)
[2017-08-27] MEDS: FENOFIBRATE 145 MG TAB PO SCH (08:51)
[2017-08-27] MEDS: amLODIPine BESYLATE 5 MG TAB PO SCH (08:51)
[2017-08-27] MEDS: ACETYLCYSTEINE 20% 6,000 MG/30 ML ORAL SOLN VIAL PO SCH (08:52)
--- NOTE | 2017-08-27 10:10 | PD.VS.PN ---
Subjective POD #: 2 Procedure(s): EVAR with Endologix device and aortic cuff R iliofemoral bypass R IN SERVICE EDUCATOR-SFA bypass R EIA FIRE FIGHTER CRASH FIRE AND RESCUE Subjective/Hospital Course Afebrile Pt sitting up in the chair alert in NAD Pt c/o mild discomfort to Right groin (incisional pain) R groin w/o hematoma or swelling Blood transfusing at time of assessment Caballero removed yesterday- pt voiding w/o difficulties Pt denies abdominal/back pain Objective Vitals/I&O Date Time Temp Pulse Resp B/P (MAP) Pulse Ox O2 Delivery O2 Flow Rate FiO2 08/27/17 09:55 18 08/27/17 09:54 100 08/27/17 08:46 98.4 96 18 104/68 97 08/27/17 08:37 97.5 93 18 154/70 97 08/27/17 08:15 85 08/27/17 08:15 95 Room Air 08/27/17 08:15 98.0 88 18 162/70 (100) 95 08/27/17 06:06 86 08/27/17 05:06 83 08/27/17 04:12 83 08/27/17 03:52 98.3 84 16 119/58 (78) 96 08/27/17 03:52 96 Room Air 08/27/17 03:21 81 08/27/17 02:00 81 08/27/17 01:15 81 08/27/17 00:00 86 08/26/17 23:54 96 Room Air 08/26/17 23:54 100.0 90 16 125/96 (106) 96 08/26/17 23:16 84 08/26/17 22:08 96 08/26/17 21:54 89 08/26/17 20:32 95 08/26/17 19:50 98.8 93 16 148/67 (94) 96 08/26/17 19:30 96 Nasal Cannula 2.00 08/26/17 19:30 96 Nasal Cannula 2.00 08/26/17 19:15 91 08/26/17 18:00 97 08/26/17 17:00 96 08/26/17 16:00 100 08/26/17 15:00 93 08/26/17 15:00 98.9 92 19 150/67 (94) 97 08/26/17 15:00 97 Nasal Cannula 2.00 08/26/17 14:00 95 08/26/17 13:00 83 08/26/17 12:00 85 08/26/17 11:00 87 08/26/17 11:00 96 Nasal Cannula 2.00 08/26/17 11:00 99.0 86 20 164/64 (97) 96 08/26/17 11:00 96 Nasal Cannula 2.00 08/27/17 08/27/17 08/27/17 07:00 15:00 23:00 Intake Total 680 ml 0 ml Output Total 1000 ml Balance -320 ml 0 ml Exam: GENERAL: SKIN: Warm and dry Right groin w/ Provena wound vac intact- NO hematoma present CARDIOVASCULAR: Regular rate and rhythm without murmurs, gallops, or rubs. RESPIRATORY: Breath sounds equal bilaterally. No accessory muscle use. GASTROINTESTINAL: Abdomen soft, non-tender, nondistended. MUSCULOSKELETAL: No cyanosis, or edema. Pulses: Palpable Left DP Triphasic Left PT Triphasic R DP/PT BLE warm w/ motor intact Laboratory Laboratory Tests Test 08/27/17 04:35 White Blood Count 5.1 Red Blood Count 2.31 Hemoglobin 7.0 Hematocrit 20.8 Mean Corpuscular Volume 89.8 Mean Corpuscular Hemoglobin 30.1 Mean Corpuscular Hemoglobin Concent 33.5 Red Cell Distribution Width 19.8 Platelet Count 94 Mean Platelet Volume 8.2 Assessment and Plan Assessment: (1) AAA (abdominal aortic aneurysm) (2) left fem pop bypass Status: Chronic (3) Claudication Status: Chronic Plan Pt s/p POD 2- R IN SERVICE EDUCATOR TEA and patch, then EVAR Pt with mild discomfort to right groin region expected on POD 2 Right groin w/o hematoma or swelling Reviewed AM labs - ordered PRBC transfusion Pt otherwise doing well Pt denies abdominal/back pain Plan Transfusion as ordered Repeat CBC post transfusion Continue PT/OOB TC Continue pulse checks Tori RUST [facility]/[place] [phone] Discharge Planning 2-3 days Tori Davison Aug 27, 2017 10:10
[2017-08-27] MEDS: ENOXAPARIN SODIUM 30 MG/0.3 ML SYRINGE SQ SCH (13:26)
[2017-08-27] MEDS: HYDROmorphone HCL 2 MG TAB PO PRN ×2 (15:22→21:12)
[2017-08-27 16:56] LABS: HEMATOCRIT 27.7 % (39.0-51.0); MEAN CELL VOLUME 86.2 FL (80.0-100.0); MEAN CORPUSCULAR HEMOGLOBIN 29.6 PG (27.0-34.0); MEAN CORPUSCULAR HGB CONC 34.3 % (32.0-36.0); PLATELET COUNT 120 TH/MM3 (150-450); RED BLOOD COUNT 3.21 MIL/MM3 (4.50-5.90); RED CELL DISTRIBUTION WIDTH 22.1 % (11.6-17.2); WHITE BLOOD COUNT 7.9 TH/MM3 (4.0-11.0)
[2017-08-27 17:02] LABS: REVIEW FLAG FINAL
[2017-08-27] MEDS: EZETIMIBE 10 MG TAB PO SCH (21:13)
[2017-08-27] MEDS: ATORVASTATIN 40 MG TAB PO SCH (21:13)
[2017-08-27] MEDS: TAMSULOSIN HCL 0.4 MG CAP PO SCH (21:14)
[2017-08-28] VITALS (26 sets, daily range): BP systolic 148–190; BP diastolic 67–80; PULSE 79–97; RESP 16–19; TEMP 98.2–98.9; O2SAT 95–97
[2017-08-28] MEDS: HYDROmorphone HCL 2 MG TAB PO PRN ×2 (05:32→13:52)
[2017-08-28 05:45] LABS: MEAN CELL VOLUME 85.4 FL (80.0-100.0); MEAN CORPUSCULAR HEMOGLOBIN 29.2 PG (27.0-34.0); MEAN CORPUSCULAR HGB CONC 34.1 % (32.0-36.0); PLATELET COUNT 111 TH/MM3 (150-450); RED BLOOD COUNT 3.16 MIL/MM3 (4.50-5.90); REVIEW FLAG FINAL; WHITE BLOOD COUNT 6.4 TH/MM3 (4.0-11.0)
--- NOTE | 2017-08-28 08:15 | PD.VS.PN ---
Subjective POD #: 3 Procedure(s): EVAR with Endologix device and aortic cuff R iliofemoral bypass R BEHAVIORAL SERVICES TECH-SFA bypass R EIA SLP Subjective/Hospital Course OOB TC for 2 hours yesterday feels like he needs to have BM Zayra po groin pain ok foot ok Objective Vitals/I&O Date Time Temp Pulse Resp B/P (MAP) Pulse Ox O2 Delivery O2 Flow Rate FiO2 08/28/17 07:00 Room Air 08/28/17 07:00 82 08/28/17 07:00 98.3 83 19 166/80 (108) 96 08/28/17 06:03 85 08/28/17 05:13 82 08/28/17 04:04 85 08/28/17 03:30 98.2 90 16 148/71 (96) 96 08/28/17 03:30 96 Room Air 08/28/17 03:05 79 08/28/17 02:06 79 08/28/17 01:02 90 08/28/17 00:03 82 08/27/17 23:30 98.7 95 16 167/76 (106) 95 08/27/17 23:30 95 Room Air 08/27/17 23:09 84 08/27/17 22:15 16 08/27/17 22:02 85 08/27/17 21:03 91 08/27/17 20:43 95 08/27/17 19:50 89 08/27/17 19:30 95 Room Air 08/27/17 19:30 99.2 93 16 171/67 (101) 95 08/27/17 18:05 88 08/27/17 17:14 95 08/27/17 16:07 91 08/27/17 15:15 98 Room Air 08/27/17 15:15 85 08/27/17 15:15 97.7 84 16 160/74 (102) 98 08/27/17 14:24 16 08/27/17 14:01 93 08/27/17 13:20 93 08/27/17 12:20 98 08/27/17 11:32 98 08/27/17 11:32 97 Room Air 08/27/17 11:32 97.5 94 18 144/83 (103) 97 08/27/17 11:11 98.2 97 18 144/63 98 08/27/17 10:04 103 08/27/17 09:54 100 08/27/17 08:46 98.4 96 18 104/68 97 08/27/17 08:37 97.5 93 18 154/70 97 08/27/17 08:15 85 08/27/17 08:15 95 Room Air 08/27/17 08:15 98.0 88 18 162/70 (100) 95 08/28/17 08/28/17 08/28/17 07:00 15:00 23:00 Intake Total 480 ml Output Total 1357 ml Balance -877 ml Exam: R groin VAC removed incision c/d/i palpable PT Laboratory Laboratory Tests Test 08/27/17 16:26 08/28/17 05:20 White Blood Count 7.9 6.4 Red Blood Count 3.21 3.16 Hemoglobin 9.5 9.2 Hematocrit 27.7 27.0 Mean Corpuscular Volume 86.2 85.4 Mean Corpuscular Hemoglobin 29.6 29.2 Mean Corpuscular Hemoglobin Concent 34.3 34.1 Red Cell Distribution Width 22.1 22.0 Platelet Count 120 111 Mean Platelet Volume 7.8 7.6 Assessment and Plan Assessment: (1) AAA (abdominal aortic aneurysm) (2) left fem pop bypass Status: Chronic (3) Claudication Status: Chronic Plan POD#3 Good response to PRBC OOB/PT d/c planning incision open to air Discharge Planning today/tomorrow Huy Wagner MD Aug 28, 2017 08:15
[2017-08-28] MEDS: FENOFIBRATE 145 MG TAB PO SCH (08:46)
[2017-08-28] MEDS: DOCUSATE SODIUM 100 MG CAP PO SCH ×2 (08:46→20:50)
[2017-08-28] MEDS: CLOPIDOGREL 75 MG TAB PO SCH (08:46)
[2017-08-28] MEDS: FINASTERIDE 5 MG TAB PO SCH (08:47)
[2017-08-28] MEDS: metFORMIN HCL 850 MG TAB PO SCH ×2 (08:47→18:00)
[2017-08-28] MEDS: ASPIRIN EC 81 MG TABEC PO SCH (08:48)
[2017-08-28] MEDS: PANTOPRAZOLE SOD 40 MG DELAYED RELEASE TAB PO SCH ×2 (08:48→20:50)
[2017-08-28] MEDS: amLODIPine BESYLATE 5 MG TAB PO SCH (09:11)
[2017-08-28] MEDS: ENOXAPARIN SODIUM 30 MG/0.3 ML SYRINGE SQ SCH (13:53)
[2017-08-28] MEDS: TAMSULOSIN HCL 0.4 MG CAP PO SCH (20:49)
[2017-08-28] MEDS: EZETIMIBE 10 MG TAB PO SCH (20:50)
[2017-08-28] MEDS: ATORVASTATIN 40 MG TAB PO SCH (20:50)
[2017-08-29] VITALS (12 sets, daily range): BP systolic 159–174; BP diastolic 74–82; PULSE 76–91; RESP 16–18; TEMP 98.4–99.1; O2SAT 96
--- NOTE | 2017-08-29 07:41 | PD.VS.PN ---
Subjective POD #: 4 Procedure(s): EVAR with Endologix device and aortic cuff R iliofemoral bypass R WOOD DRILL OPERATOR-SFA bypass R EIA COUNTER SALES REPRESENTATIVE Subjective/Hospital Course up and walking using walker pain controlled shelbie diet Objective Vitals/I&O Date Time Temp Pulse Resp B/P (MAP) Pulse Ox O2 Delivery O2 Flow Rate FiO2 08/29/17 06:00 76 08/29/17 05:00 80 08/29/17 04:00 78 08/29/17 03:02 82 08/29/17 03:00 98.4 82 16 174/82 (112) 96 08/29/17 02:00 81 08/29/17 01:00 88 08/29/17 00:00 91 08/28/17 23:00 98.6 89 16 184/76 (112) 96 08/28/17 23:00 84 08/28/17 22:00 87 08/28/17 21:57 16 08/28/17 21:00 86 08/28/17 20:00 86 08/28/17 19:00 98.4 90 16 190/67 (108) 97 08/28/17 19:00 88 08/28/17 18:00 92 08/28/17 17:00 92 08/28/17 16:00 90 08/28/17 15:20 16 08/28/17 15:00 Room Air 08/28/17 15:00 96 08/28/17 15:00 98.6 94 19 175/73 (107) 95 08/28/17 14:00 88 08/28/17 13:00 88 08/28/17 12:00 88 08/28/17 11:35 Room Air 08/28/17 11:35 97 08/28/17 11:18 98.9 87 18 173/77 (109) 96 08/28/17 10:00 86 08/28/17 09:00 90 08/28/17 08:00 88 08/29/17 08/29/17 08/29/17 06:59 14:59 22:59 Intake Total 480 ml Output Total 1625 ml Balance -1145 ml Exam: palpable R PT groin soft incision ok Assessment and Plan Assessment: (1) AAA (abdominal aortic aneurysm) (2) left fem pop bypass Status: Chronic (3) Claudication Status: Chronic Plan POD#4 Looks good palpable pulses groin ok Discharge Planning Today F/u 3 weeks with post-EVAR protocol CTA and ABIs - will schedule Huy Wagner MD Aug 29, 2017 07:41
[2017-08-29] MEDS: FINASTERIDE 5 MG TAB PO SCH (08:08)
[2017-08-29] MEDS: FENOFIBRATE 145 MG TAB PO SCH (08:08)
[2017-08-29] MEDS: PANTOPRAZOLE SOD 40 MG DELAYED RELEASE TAB PO SCH (08:08)
[2017-08-29] MEDS: ASPIRIN EC 81 MG TABEC PO SCH (08:09)
[2017-08-29] MEDS: amLODIPine BESYLATE 5 MG TAB PO SCH (08:09)
[2017-08-29] MEDS: metFORMIN HCL 850 MG TAB PO SCH (08:10)
[2017-08-29] MEDS: DOCUSATE SODIUM 100 MG CAP PO SCH (08:10)
[2017-08-29] MEDS: CLOPIDOGREL 75 MG TAB PO SCH (08:10)
[2017-08-29] MEDS ORDERED: PERC5TAB12 PO (08:30)
--- NOTE | 2017-08-29 08:36 | PD.VS.DC ---
Discharge Summary Admission Date: Aug 25, 2017 at 06:58 Discharge Date: Aug 29, 2017 Admission Diagnosis: (1) AAA (abdominal aortic aneurysm) Discharge Diagnosis: (1) AAA (abdominal aortic aneurysm) ICD Codes: I71.4 - Abdominal aortic aneurysm, without rupture (2) left fem pop bypass Status: Chronic (3) Claudication ICD Codes: I73.9 - Peripheral vascular disease, unspecified Status: Chronic Brief History from admission 72 yo male with AAA and PAD. S/p L L bypass x 2, most recently in Oct. Has had AAA that is being observed for some time but now is 5.2 cm. After discussion of risks and benefits with the patient, he would like it repaired. In order to place EVAR, he needs R FIELD PROJECT MANAGER reconstruction. No interval change in history that would preclude surgery Procedure(s): EVAR with Endologix device and aortic cuff R iliofemoral bypass R FIELD PROJECT MANAGER-SFA bypass R EIA KILN WORKER Significant Findings GENERAL: A&OX3, NAD SKIN: Warm and dry. Right groin with ecchymosis and erythema at the incision line w/o drainage/ swelling/odor LE warm with motor intact Laboratory Tests Test 08/27/17 04:35 08/27/17 16:26 08/28/17 05:20 Red Blood Count 2.31 MIL/MM3 (4.50-5.90) 3.21 MIL/MM3 (4.50-5.90) 3.16 MIL/MM3 (4.50-5.90) Hemoglobin 7.0 GM/DL (13.0-17.0) 9.5 GM/DL (13.0-17.0) 9.2 GM/DL (13.0-17.0) Hematocrit 20.8 % (39.0-51.0) 27.7 % (39.0-51.0) 27.0 % (39.0-51.0) Red Cell Distribution Width 19.8 % (11.6-17.2) 22.1 % (11.6-17.2) 22.0 % (11.6-17.2) Platelet Count 94 TH/MM3 (150-450) 120 TH/MM3 (150-450) 111 TH/MM3 (150-450) Hospital Course: 72 yo male with AAA and PAD. S/p L L bypass x 2, most recently in Oct. Has had AAA that is being observed for some time but now is 5.2 cm. After discussion of risks and benefits with the patient, he would like it repaired. In order to place EVAR, he needs R FIELD PROJECT MANAGER reconstruction. No interval change in history that would preclude surgery Pt s/p r groin reconstruction with EVAR doing well w/o complications Allergies Coded Allergies Type Severity Reaction Last Updated Verified Sulfa (Sulfonamide Antibiotics) Allergy Severe 08/25/17 No penicillin G Allergy Severe 08/25/17 No 08/27/17 08/27/17 08/28/17 08/28/17 08/29/17 08/29/17 06:00 18:00 06:00 18:00 06:00 18:00 Intake Total 680 ml 1760 ml 480 ml 730 ml 480 ml Output Total 1000 ml 1200 ml 1357 ml 950 ml 1625 ml Balance -320 ml 560 ml -877 ml -220 ml -1145 ml Intake Oral 680 ml 600 ml 480 ml 730 ml 480 ml IV Total 100 ml Packed Cells 1000 ml Blood Product IV Normal Saline Flush 60 ml Output Urine Total 1000 ml 1200 ml 1357 ml 950 ml 1625 ml Stool Total 0 ml # Bowel Movements 0 Laboratory Tests Test 08/27/17 04:35 08/27/17 16:26 08/28/17 05:20 White Blood Count 5.1 TH/MM3 7.9 TH/MM3 6.4 TH/MM3 Red Blood Count 2.31 MIL/MM3 3.21 MIL/MM3 3.16 MIL/MM3 Hemoglobin 7.0 GM/DL 9.5 GM/DL 9.2 GM/DL Hematocrit 20.8 % 27.7 % 27.0 % Mean Corpuscular Volume 89.8 FL 86.2 FL 85.4 FL Mean Corpuscular Hemoglobin 30.1 PG 29.6 PG 29.2 PG Mean Corpuscular Hemoglobin Concent 33.5 % 34.3 % 34.1 % Red Cell Distribution Width 19.8 % 22.1 % 22.0 % Platelet Count 94 TH/MM3 120 TH/MM3 111 TH/MM3 Mean Platelet Volume 8.2 FL 7.8 FL 7.6 FL Orders Procedure Category Date Status Time Remove Urinary CRISTINE 08/26/17 In Process Catheter 09:10 Consult Pt Eval & Tx PT 08/26/17 Complete OOB 09:10 Acetaminophen MED 08/26/17 In Process (Tylenol) 09:30 Remove Urinary CRISTINE 08/26/17 In Process Catheter 09:22 ^ Other Nursing Orders CRISTINE 08/26/17 In Process 09:22 Activity Oob With CRISTINE 08/26/17 In Process Assistance 09:22 Consult Pt Eval & Tx PT 08/26/17 Logged OOB 09:22 Cbc No Diff, Includes LAB 08/27/17 Complete Plts 06:00 Bedside Glucose CRISTINE 08/26/17 Complete 09:30 Blood Glucose Goal CRISTINE 08/26/17 In Process (Criteria) 09:30 Hypoglycemia 70 Mg/Dl CRISTINE 08/26/17 In Process Or < 09:[address]: Other CRISTINE 08/26/17 In Process 09:30 Dextrose 50% In Markus MED 08/26/17 In Process (Vial) Inj (D50w (Vi 09:30 Glucagon Inj MED 08/26/17 In Process (Glucagon Inj) 09:30 Insulin Human Reg MED 08/26/17 Complete Supp Scale (Novolin R 12:00 Metformin (Glucophage) MED 08/26/17 In Process 18:00 Finasteride (Proscar) MED 08/27/17 In Process 09:00 Acetylcysteine 20% MED 08/26/17 Complete Liq (Mucomyst 20% Liq 21:15 Cbc No Diff, Includes LAB 08/27/17 Complete Plts 15:00 ^ Other Nursing Orders CRISTINE 08/27/17 In Process 06:48 Cbc No Diff, Includes LAB 08/28/17 Complete Plts 06:00 Attending Discharge DISCHARGE 08/29/17 Transmitted Order Vital Signs Date Time Temp Pulse Resp B/P (MAP) Pulse Ox O2 Delivery O2 Flow Rate FiO2 08/29/17 06:00 76 08/29/17 05:00 80 08/29/17 04:00 78 08/29/17 03:02 82 08/29/17 03:00 98.4 82 16 174/82 (112) 96 08/29/17 02:00 81 08/29/17 01:00 88 08/29/17 00:00 91 08/28/17 23:00 98.6 89 16 184/76 (112) 96 08/28/17 23:00 84 08/28/17 22:00 87 08/28/17 21:57 16 08/28/17 21:00 86 08/28/17 20:00 86 08/28/17 19:00 98.4 90 16 190/67 (108) 97 08/28/17 19:00 88 08/28/17 18:00 92 08/28/17 17:00 92 08/28/17 16:00 90 08/28/17 15:20 16 08/28/17 15:00 Room Air 08/28/17 15:00 96 08/28/17 15:00 98.6 94 19 175/73 (107) 95 08/28/17 14:00 88 08/28/17 13:00 88 08/28/17 12:00 88 08/28/17 11:35 Room Air 08/28/17 11:35 97 08/28/17 11:18 98.9 87 18 173/77 (109) 96 08/28/17 10:00 86 08/28/17 09:00 90 08/28/17 08:00 88 08/28/17 07:00 Room Air 08/28/17 07:00 82 08/28/17 07:00 98.3 83 19 166/80 (108) 96 08/28/17 06:03 85 08/28/17 05:13 82 08/28/17 04:04 85 08/28/17 03:30 98.2 90 16 148/71 (96) 96 08/28/17 03:30 96 Room Air 08/28/17 03:05 79 08/28/17 02:06 79 08/28/17 01:02 90 08/28/17 00:03 82 08/27/17 23:30 98.7 95 16 167/76 (106) 95 08/27/17 23:30 95 Room Air 08/27/17 23:09 84 08/27/17 22:02 85 08/27/17 21:03 91 08/27/17 20:43 95 08/27/17 19:50 89 08/27/17 19:30 95 Room Air 08/27/17 19:30 99.2 93 16 171/67 (101) 95 08/27/17 18:05 88 08/27/17 17:14 95 9/27/17 16:07 91 08/27/17 15:15 98 Room Air 08/27/17 15:15 85 08/27/17 15:15 97.7 84 16 160/74 (102) 98 08/27/17 14:01 93 08/27/17 13:20 93 08/27/17 12:20 98 08/27/17 11:32 98 08/27/17 11:32 97 Room Air 08/27/17 11:32 97.5 94 18 144/83 (103) 97 08/27/17 11:11 98.2 97 18 144/63 98 08/27/17 10:04 103 08/27/17 09:54 100 08/27/17 08:46 98.4 96 18 104/68 97 08/27/17 08:37 97.5 93 18 154/70 97 08/27/17 08:15 85 08/27/17 08:15 95 Room Air 08/27/17 08:15 98.0 88 18 162/70 (100) 95 08/27/17 06:06 86 08/27/17 05:06 83 08/27/17 04:12 83 08/27/17 03:52 98.3 84 16 119/58 (78) 96 08/27/17 03:52 96 Room Air 08/27/17 03:21 81 08/27/17 02:00 81 08/27/17 01:15 81 08/27/17 00:00 86 08/26/17 23:54 96 Room Air 08/26/17 23:54 100.0 90 16 125/96 (106) 96 08/26/17 23:16 84 08/26/17 22:08 96 08/26/17 21:54 89 08/26/17 20:32 95 08/26/17 19:50 98.8 93 16 148/67 (94) 96 08/26/17 19:30 96 Nasal Cannula 2.00 08/26/17 19:30 96 Nasal Cannula 2.00 08/26/17 19:15 91 08/26/17 18:00 97 08/26/17 17:00 96 08/26/17 16:00 100 08/26/17 15:00 93 08/26/17 15:00 98.9 92 19 150/67 (94) 97 08/26/17 15:00 97 Nasal Cannula 2.00 08/26/17 14:00 95 08/26/17 13:00 83 08/26/17 12:00 85 08/26/17 11:00 87 08/26/17 11:00 96 Nasal Cannula 2.00 08/26/17 11:00 99.0 86 20 164/64 (97) 96 08/26/17 11:00 96 Nasal Cannula 2.00 08/26/17 10:01 93 08/26/17 09:00 86 Discharge Condition: Good Discharge Disposition: Discharge Home Discharge Instructions: Report any new onset fever, chills, abdominal/Back pain Report any new onset increased redness, drainage or swelling to R groin incision Activities as tolerated Resume a heart healthy diet - Low carb/sodium Continue a daily walking regimen May shower then pat dry incision NO tub baths/swimming until incision is fully healed Call the office with any questions or concerns Tori RUST [facility]/[place] [phone] Any questions or concerns: Call [facility] at [facility] [phone] Tori Davison Aug 29, 2017 08:36
== END 2017-08-29 09:37 | disposition home or self-care (01) | DRG 272 ==
LOC: HSDI 08-25 06:58 → HCPC 08-25 16:00
PROVIDERS: ADMIT Surgery; ATTEND Surgery
PROC: 041K0JH Bypass Right Femoral Artery to Right Femoral Artery with Synthetic Substitute, Open Approach (ICD-10-PCS; 2017-08-25)
PROC: 047H0ZZ Dilation of Right External Iliac Artery, Open Approach (ICD-10-PCS; 2017-08-25)
PROC: 04CK0ZZ Extirpation of Matter from Right Femoral Artery, Open Approach (ICD-10-PCS; 2017-08-25)
PROC: 04UC0KZ Supplement Right Common Iliac Artery with Nonautologous Tissue Substitute, Open Approach (ICD-10-PCS; 2017-08-25)
PROC: 04V00DZ Restriction of Abdominal Aorta with Intraluminal Device, Open Approach (ICD-10-PCS; principal; 2017-08-25 10:20)
PROC: 30233N1 Transfusion of Nonautologous Red Blood Cells into Peripheral Vein, Percutaneous Approach (ICD-10-PCS; 2017-08-27)
DX: I71.4 Abdominal aortic aneurysm, without rupture (principal); G62.9 Polyneuropathy, unspecified; E11.9 Type 2 diabetes mellitus without complications; Z79.84 Long term (current) use of oral hypoglycemic drugs; I10 Essential (primary) hypertension; I73.9 Peripheral vascular disease, unspecified; Z79.82 Long term (current) use of aspirin; I25.10 Atherosclerotic heart disease of native coronary artery without angina pectoris; G47.30 Sleep apnea, unspecified; M54.9 Dorsalgia, unspecified; K21.9 Gastro-esophageal reflux disease without esophagitis; M06.9 Rheumatoid arthritis, unspecified; Z85.118 Personal history of other malignant neoplasm of bronchus and lung; Z90.2 Acquired absence of lung [part of]; Z87.891 Personal history of nicotine dependence
CPT/HCPCS: 36430; 75630; 76937; 80048; 82948; 84155; 85027; 86850; 86900; 86901; 86920; C1725; C1768; C1769; J0131; J1644; J1650; J2250; J2270; J2370; J2405; J2720; J3010; J3370; J7040; J7050; J7120; P9016; Q9967

== ENCOUNTER 2018-04-23 10:30 | Day surgery (SDC) | payer MEDICARE, OTHER ==
[~2018-04-23] VITALS: Ht 167.6 cm; Wt 83.7 kg
[~2018-04-23 10:30] MED LIST changes: -ASPI-110 PO; +ASPI1TAB57 PO; +DOCU1CAP66 PO; +EZET10 PO; -OXYC1TAB63 PO; +PERC5TAB12 PO; +RANI150T PO; -STOO100C PO; -SUCR1TAB PO; +TEMA15CA PO; +TIOT1AER INH; +VITA500T35 PO; -VITA500T49 PO; -ZETI10TA5 PO
[2018-04-23] MEDS ORDERED: IOHEXOL 350 MG/ML 50 ML BTL (for Cath Lab) OTHER ONE (10:31)
[2018-04-23 11:07] VITALS: BP 149/77; PULSE 90; RESP 18; TEMP 97.9; O2SAT 98
[2018-04-23] MEDS ORDERED: EXEN1INJ SQ (11:24)
--- NOTE | 2018-04-23 11:34 | HHI.HP ---
History of Present Illness Chief Complaint: B LE leg pain History of Present Illness 72 yo male with PAD s/p L LE bypass x 2 and B groin reconstruction. On CT has possible EIA stenoses. No rest pain and no tissue loss Past/Family/Social History Past Medical History HTN CAD lung CA PAD AAA Past Surgical History CABG lobectomy distal bypass L LE x 2 Social History former smoker, not presently smoking Family History NC Home Medications Reported Medications Exenatide Pen Inj (Bydureon Pen Inj) 2 Mg Pfpen, 2 MG SQ Q7D for Blood Sugar Management, #4 INJECTION 0 Refills 04/23/18 Temazepam (Temazepam) 15 Mg Cap, 15 MG PO HS Y for INSOMNIA, #30 CAP 0 Refills 08/25/17 Tiotropium-Olodaterol Inh (Stiolto Respimat Inh) 2.5-2.5 Mcg/Act Aero, 2 PUFF INH DAILY for COPD, #1 INHALER 0 Refills 08/25/17 Ranitidine (Ranitidine) 150 Mg Tab, 300 MG PO HS for Heartburn Management, #30 TAB 0 Refills 08/25/[address] (Aspirin 81) 81 Mg Tabdr, 81 MG PO DAILY, TAB 0 Refills 08/13/17 Amlodipine (Amlodipine) 5 Mg Tab, 2.5 MG PO DAILY for Blood Pressure Management , #30 TAB 0 Refills 11/14/16 Pantoprazole (Pantoprazole) 40 Mg Tab, 40 MG PO BID for Reflux, #30 TAB 0 Refills 11/14/16 Krill Oil (Megared [place]-3 Krill Oil) 500 Mg Cap, 500 MG PO DAILY 11/14/16 Cyanocobalamin (Vitamin B12) 500 Mcg Tab, 1000 MCG PO DAILY, #1 BOTTLE 11/14/16 Clopidogrel (Clopidogrel) 75 Mg Tab, 75 MG PO DAILY for Blood Clot Prevention, # 30 TAB 0 Refills 11/14/16 Fenofibrate (Tricor) 145 Mg Tab, 145 MG PO DAILY, #30 TAB 0 Refills Takw with food. 11/14/16 Finasteride (Finasteride) 5 Mg Tab, 5 MG PO DAILY for Manage Prostate Problems, #30 TAB 0 Refills Do not crush. 11/14/16 Ezetimibe (Zetia) 10 Mg Tab, 10 MG PO HS, #30 TAB 0 Refills 11/14/16 Levocetirizine (Levocetirizine) 5 Mg Tab, 5 MG PO DAILY for Allergy Management, #30 TAB 0 Refills 11/14/16 Docusate Sodium (Stool Softener) 100 Mg Cap, 100 MG PO DAILY 11/14/16 Tamsulosin (Tamsulosin) 0.4 Mg Cap, 0.4 MG PO HS for Manage Prostate Problems, # 30 CAP 0 Refills 11/14/16 Metformin (Metformin) 850 Mg Tab, 850 MG PO BIDPC for Blood Sugar Management, TAB 0 Refills With meals 11/14/16 Rosuvastatin (Crestor) 20 Mg Tab, 20 MG PO HS for Cholesterol Management, #30 TAB 0 Refills 11/14/16 Coenzyme Q10 (Ubidecarenone) (Co Q 10) 100 Mg Cap, 100 MG PO DAILY 11/14/16 Discontinued Reported Medications Ranitidine (Ranitidine) 150 Mg Tab, 150 MG PO DAILYAC Y for REFLUX, #30 TAB 0 Refills 08/25/17 Exenatide Pen Inj (Bydureon Pen Inj) 2 Mg Pfpen, 2 MG SQ Q7D for Blood Sugar Management, #4 INJECTION 0 Refills 11/14/16 Discontinued Scripts Oxycodone-Acetaminophen (Percocet) 5-325 mg Tab, 1 TAB PO Q4H Y for PAIN, #30 TAB 0 Refills Prov:Tori Davison 08/29/17 Coded Allergies: Sulfa (Sulfonamide Antibiotics) (Unverified Allergy, Severe, FLU LIKE SYMPTOMS, 04/23/18) penicillin G (Unverified Allergy, Severe, Hives/SOB, 04/23/18) Review of Systems Constitutional: DENIES: Diaphoretic episodes, Fatigue, Fever, Weight gain, Weight loss, Chills, Dizziness, Change in appetite, Night Sweats Respiratory: DENIES: Apneas, Cough, Snoring, Wheezing, Hemoptysis, Sputum production, Shortness of breath Physical Exam Vitals/I&O Date Time Temp Pulse Resp B/P (MAP) Pulse Ox O2 Delivery O2 Flow Rate FiO2 04/23/18 11:07 97.9 90 18 149/77 (101) 98 Neuro: alert, oriented, no distress HEENT: NC/AT Neck: no JVD Heart: reg rate Lungs: clear Abdomen: NT Vascular: no tissue loss Extremities: no C/C/E Laboratory Tests Test 04/23/18 10:55 CTA reviewed Caprini VTE Risk Assessment Caprini VTE Risk Assessment: No/Low Risk (score <= 1) Caprini Risk Assessment Model Point Value = 1 Point Value = 2 Point Value = 3 Point Value = 5 Age 41-60 Minor surgery BMI > 25 kg/m2 Swollen legs Varicose veins or History of unexplained or recurrent spontaneous Oral contraceptives or hormone replacement Sepsis (< 1 month) Serious lung disease, including pneumonia (< 1 month) Abnormal pulmonary function Acute myocardial infarction Congestive heart failure (< 1 month) History of inflammatory bowel disease Medical patient at bed rest Age 61-74 Arthroscopic surgery Major open surgery (> 45 min) Laparoscopic surgery (> 45 min) Malignancy Confined to bed (> 72 hours) Immobilizing plaster cast Central venous access Age >= 75 History of VTE Family history of VTE Factor V Leiden Prothrombin [id number] Lupus anticoagulant Anticardiolipin antibodies Elevated serum homocysteine Heparin-induced thrombocytopenia Other congenital or acquired thrombophilia Stroke (< 1 month) Elective arthroplasty Hip, pelvis, or leg fracture Acute spinal cord injury (< 1 month) Prophylaxis Regimen Total Risk Factor Score Risk Level Prophylaxis Regimen 0-1 Low Early ambulation 2 Moderate Order ONE of the following: *Sequential Compression Device (SCD) *Heparin 5000 units SQ BID 3-4 Higher Order ONE of the following medications: *Heparin 5000 units SQ TID *Enoxaparin/Lovenox 40 mg SQ daily (WT < 150 kg, CrCl > 30 mL/min) *Enoxaparin/Lovenox 30 mg SQ daily (WT < 150 kg, CrCl > 10-29 mL/min) *Enoxaparin/Lovenox 30 mg SQ BID (WT < 150 kg, CrCl > 30 mL/min) AND/OR *Sequential Compression Device (SCD) 5 or more Highest Order ONE of the following medications: *Heparin 5000 units SQ TID (Preferred with Epidurals) *Enoxaparin/Lovenox 40 mg SQ daily (WT < 150 kg, CrCl > 30 mL/min) *Enoxaparin/Lovenox 30 mg SQ daily (WT < 150 kg, CrCl > 10-29 mL/min) *Enoxaparin/Lovenox 30 mg SQ BID (WT < 150 kg, CrCl > 30 mL/min) AND *Sequential Compression Device (SCD) Assessment and Plan Plan B LE leg pain, possible vasculogenic claudication To OR for B LE angiogram [phone] Discharge Planning home today Huy Wagner MD April 23, 2018 11:34
[2018-04-23 11:39] LABS: BICARBONATE 25.2 MEQ/L (21.0-32.0); CALCIUM 9.1 MG/DL (8.5-10.1); CREATININE 1.25 MG/DL (0.60-1.30)
[2018-04-23] MEDS ORDERED: MIDAZOLAM HCL 2 MG/2 ML VIAL ONE (11:42)
[2018-04-23] MEDS ORDERED: HEPARIN SODIUM - IV 10,000 UNITS/10 ML VIAL ONE (11:42)
[2018-04-23] MEDS ORDERED: HEPARIN-NS/PF INJ 1,500 ML ONE (11:42)
--- NOTE | 2018-04-23 12:08 | HHI.PR ---
cc: Huy Wagner MD Immediate Post Op Note Procedure Date: April 23, 2018 Pre Op Diagnosis: Leg pain, B LE Post Op Diagnosis: same, no aorto-iliac stenosis identified Surgeon: Huy Wagner Orthopedically Impaired Teacher(s): none Procedure: Aortogram Findings: no aortoiliac stenosis Complications: none Specimen(s) removed: none Estimated blood loss: 10mL Anesthesia: MAC Patient to: Other (DOCU) Patient Condition: Good Date/Time of Procedure: SEE SURGICAL CARE RECORD Huy Wagner MD April 23, 2018 12:08
--- NOTE | 2018-04-23 12:31 | CATHPROC ---
[employer] HIS Report Study Information Study Number Admission Scheduled Start Study Start [id number] Apr 23 2018 10:30AM 04/23/2018 Apr 23 2018 11:28AM Plaza Service Cath Endovascular Study Admit Source Facility Department Other [facility] - Cardiac Exercise Physiologist Physician and Clinical Staff Initial MD Wagner, Huy Chief Cloth Finishing Range Operator Lavinia Figueroa,RN Recorder Crow Alvarado,RT(R) Scrub Rodriguez Thibodeaux,RT(R) Procedures Performed Procedure Location (Site) Vessel Name Abdominal Angiogram Abd Aorta (A3) Aorta Wire insertion Fem Art (left) Femoral Art Equipment Time Setter Machine Description Size Mfg Part Number Used/Scraped [id number] 12:00 ANGIO-DYNAMICS OMNI FLUSH 65CM CATHETER FR 5 Used *[id number] INTRODUCER SET, 11:30 [employer] FR 5 [id number] *[id number] Used MICROPUNCTURE STIFF 534-550S *[id number] 11:30 [employer] PACK, CCL CUSTOM * Used *[id number] TUBING, PRESSURE INJECTION [id number] 11:30 NAMIC 72" Used 72" *[id number] 11:30 NYCOMED OMNIPAQUE, 300 MG, 150ML 150ML [id number] Used 11:30 NYCOMED OMNIPAQUE, 300 MG, 50ML 50ML [id number] Used [id number] 11:30 MARINA MED[employer] BLANKET,WARM AIR CCL * Used *[id number] 11:54 TERUMO MEDICAL SHEATH, FR5 TERUMO (10CM) FR 5 Used *[id number] 12:01 TERUMO MEDICAL/REY CATHETER, FR5 ANGLED 100CM FR 5 [id number] *[id number] Used WIRE, ANGLED GLIDE .035 [id number] 11:30 TERUMO MEDICAL/REY 260CM Used 260CM *[id number] History: Allergies Allergy Reaction Penicillin Sulfa Sulfa (Sulfonamide Antibiotics) FLU LIKE SYMPTOMS penicillin G Hives/SOB History: Other Current Smoker Quit Packs a Day Years Used Pack Years No 4 Years Ago 2 45 90 Labs Glucose (mg/dl) BUN (mg/dl) Creatinine (mg/dl) BUN:Creatinine (1:x) 74.00-106.00 7.00-18.00 0.50-1.30 10.00-20.00 142 14 1.2 11.7 Na (meq/l) K (meq/l) 136.00-145.00 3.50-5.10 143 3.8 CPK-MB (ng/ML) 0.50-3.60 Not Drawn Medication Medication Total Dose (Bolus/Oral) Medication Total Dosage/Unit 1% XYLOCAINE 20 mL FENTANYL 50 mcg VERSED 2 mg Medications (Bolus/Oral) Medication Time Given Dosage/Unit Administered By Reason 1% XYLOCAINE 04/23/2018 11:48:28 AM 20 mL Huy Wagner Patient arrived on 20 mL 1% XYLOCAINE given by Huy Wagner in Left Groin via Subcutaneous. VERSED 04/23/2018 11:49:49 AM 2 mg StantonrHuy 2 mg VERSED given in lab by Huy Wagner in Left Forearm via Peripheral IV. Ordered by Selvin Wagner rt. FENTANYL 04/23/2018 11:50:11 AM 50 mcg StantonrHuy 50 mcg FENTANYL given in lab by Huy Wagner via Peripheral IV. Ordered by Huy Wagner. Medication (Drip) Medication Time Given Dosage/Unit Concentration/Unit Diluent (ml) Solution IV Solutions 04/23/2018 11:44:19 AM 0 mL (IV) 500 NaCl .9 Patient arrived on IV Solutions in Left Forearm via Peripheral IV. Pump/Drip Flow = 20 ml/hr using Na Cl .9. Initial Case Assessment Cardiovascular HR Rhythm NIBP 80 sr 155/73 Edema Present Skin color Skin None Normal Warm Dry Circulatory - Right Pulses Femoral 3 Scale (0,1,2,3,4,d) Circulatory - Left Pulses Femoral 3 Scale (0,1,2,3,4,d) Neurological State Oriented to time-place- Alert Moves all extremities person Respiration - General Respiration Rate SpO2 (%) O2 (lpm) (B/min) 18 96 0 Final Case Assessment Cardiovascular HR Rhythm NIBP Chest Pain 80 sr 140/72 0 Edema Present Skin color Skin None Normal Warm Dry Circulatory - Right Pulses Femoral 3 Scale (0,1,2,3,4,d) Circulatory - Left Pulses Femoral 3 Scale (0,1,2,3,4,d) Neurological State Oriented to time-place- Alert Moves all extremities person Respiration - General Respiration Rate SpO2 (%) O2 (lpm) (B/min) 18 98 0 Chronological Log Time Study Chronological Log 11:31:06 Patient arrived via Bed. 11:31:07 Patient Name, D.O.B, / Armband Verified By R.N. 11:31:08 Consent signed by the physician and the patient and verified by the Cardiac Exercise Physiologist staff. 11:31:10 Pre-op and post- op instructions given; patient acknowledges understanding of instructions. Vitals capture started with the following parameters, Patient=Adult, Interval=5 min, Initial Pr ziswvm=388 mmHg, 11:39:54 Deflation Rate=5 mmHg, Cuff placed on Right Ankle 11:40:18 Patient has been NPO for More than 6Hrs. 11:40:19 Skin Breakdown-none present per patient. 11:40:33 HR=81 bpm, SXRL=975/78 mmhg, SpO2=95.0 %, Resp=16 B/min, Phillip=2 11:40:40 A # 20 IV was noted in the Antecubital (left). Grade = 0 11:41:21 Reference ECG taken 11:43:33 A # 20 IV was noted in the Forearm (left). Grade = 0 11:44:19 Patient arrived on IV Solutions in Left Forearm via Peripheral IV. Pump/Drip Flow = 20 ml/h r using NaCl .9. 11:45:20 History and physical on the chart or being dictated. Assessment: Initial Case, HR=80 BPM, Rhythm=sr, GMBT=555/73 mmhg, Edema=None, Color=Normal, Ski n = Warm, Dry Right Pulses: Femoral=3 11:45:22 Left Pulses: Femoral=3 Neurological: State=Alert, Ox3, CACERES Respiration: Resp=18 B/min, SpO2=96 %, O2=0 lpm 11:45:31 Bilateral groins prepped with 2% chlorhexidine, and draped after a 3 minute waiting time. 11:45:39 HR=81 bpm, GOCG=350/73 mmhg, SpO2=94.0 %, Resp=19 B/min, Phillip=2 11:46:57 MD arrived. Time Out. Correct patient, correct procedure, correct physician, labs, allergies, and equipment verified with cathead worker 11:48:12 team present. Fire risk assesment completed (see hard stop sheet for coding). Time Out Conc urred by MD and individual staff in procedure. 11:48:17 Case Start 11:48:18 Verbal Stimulation=2 Physical Stimulation=2 Airway=2 Respiration=2 TOTAL=8. (0=absent, 1=li mited, 2=present) 11:48:28 Patient arrived on 20 mL 1% XYLOCAINE given by Huy Wagner in Left Groin via Subcutaneou s. 11:49:49 2 mg VERSED given in lab by Huy Wagner in Left Forearm via Peripheral IV. Ordered by Huy Del Angel. 11:50:11 50 mcg FENTANYL given in lab by Huy Wagner via Peripheral IV. Ordered by Huy Wagner . 11:50:38 HR=80 bpm, VOUN=994/84 mmhg, SpO2=96.0 %, Resp=11 B/min, Phillip=2 11:51:43 Access site was Left Femoral Artery. A INTRODUCER SET, MICROPUNCTURE STIFF FR 5 was advanced into the Fem Art (left) using the Percu rachel 11:51:49 technique. 11:54:17 A SHEATH, FR5 TERUMO (10CM) FR 5 was advanced into the Fem Art (left) using the Percutaneou s technique. A PIGTAIL STR. INFINITI CATHETER FR 5 was advanced over a wire. OMNIPAQUE, 300 MG, 150ML 150ML was used for 11:54:50 injections. 11:55:37 HR=81 bpm, XZWD=729/76 mmhg, SpO2=93.0 %, Resp=12 B/min, Phillip=2 11:56:00 Catheter was removed 11:56:16 Through a PIGTAIL STR. INFINITI CATHETER FR 5, The Abdominal Aorta was injected with 10 cc' s of contrast. 11:57:39 A WIRE, ANGLED GLIDE .035 260CM 260CM was inserted via Fem Art (left). A OMNI FLUSH 65CM CATHETER FR 5 was advanced over a wire. OMNIPAQUE, 300 MG, 150ML 150ML was us ed for 12:00:09 injections. After removing the current catheter a CATHETER, FR5 ANGLED 100CM FR 5 was advanced over a WIRE, ANGLED 12:00:29 GLIDE .035 260CM 260CM. 12:00:38 HR=81 bpm, GJZS=864/72 mmhg, SpO2=91.0 %, Resp=14 B/min, Phillip=2 12:01:22 Wire removed 12:01:40 Manual injections down right leg through 5 egyptian glide catheter. 12:03:16 Catheter was removed 12:03:18 Case End 12:04:12 Catheter(s) removed without difficulty 12:04:15 Sheath removed; pressure applied to access site by Rodriguez Thibodeaux. Assessment: Final Case, HR=80 BPM, Rhythm=sr, LFEK=996/72 mmhg, Chest Pain=0, Edema=None, Color =Normal, Skin = Warm, Dry Right Pulses: Femoral=3 12:04:24 Left Pulses: Femoral=3 Neurological: State=Alert, Ox3, CACERES Respiration: Resp=18 B/min, SpO2=98 %, O2=0 lpm 12:05:37 HR=79 bpm, SFWF=509/77 mmhg, SpO2=98.0 %, Resp=22 B/min, Phillip=2 12:10:36 HR=84 bpm, JRJI=988/87 mmhg, SpO2=98.0 %, Resp=21 B/min, Phillip=2 12:15:35 Sterile dressing applied to site 12:15:39 HR=76 bpm, GVWI=321/76 mmhg, SpO2=98.0 %, Resp=12 B/min 12:15:39 No case complications noted. 12:15:43 Cine recording checked. 12:15:47 Bedside Report will be given. 12:16:37 Vitals capture stopped. 12:24:32 [facility] Study - Contrast Media Used In Study Contrast Total Opened (mL) Total Used (mL) Total Wasted (mL) Omnipaque 15 15 0 End Study - Maximum Contrast Load Max Contrast Load (mL) 348.7 End Study - Radiation Exposure Fluoro Time (minutes) 2.2 End Study - Patient Disposition Complications Transferred To Telemetry Bed
[2018-04-23] MEDS ORDERED: SODIUM BICARBONATE 100 MEQ in D5W 1000 ML IV SCH (13:00)
--- NOTE | 2018-04-23 15:42 | MP ---
cc: Huy Wagner MD DATE OF OPERATION: 04/23/2018 PREOPERATIVE DIAGNOSIS: Bilateral lower extremity leg pain, peripheral vascular disease. POSTOPERATIVE DIAGNOSIS: Bilateral lower extremity leg pain, peripheral vascular disease. PROCEDURE PERFORMED: 1. Ultrasound-guided access to left common femoral artery. 2. Aortogram with pelvic arteriogram. ATTENDING SURGEON: Huy Wagner MD ANESTHESIA: Local with sedation. INDICATIONS:. Mr. Allen is a 72-year-old gentleman with symptoms consistent with vasculogenic claudication. CT scan suggested he had an iliac stenoses and he was taken to the operating room for angiographic evaluation and treatment. DESCRIPTION OF PROCEDURE: Informed consent was obtained from the patient. He was taken to the operating room and placed supine on the operating room table. Appropriate timeout was taken to ensure the patient's identify, the operative site and planned procedure. There was no prior catheterization results for my review. His bilateral groins were prepped and draped and both groins were anesthetized with 1% lidocaine. Under ultrasonographic guidance, the left common femoral artery was accessed with a 21-gauge micropuncture needle. This was exchanged using Seldinger technique for a micropuncture sheath through which a 0.035 Glidewire was introduced. The micropuncture sheath was exchanged for a 5-Portuguese sheath. A retrograde iliac angiogram was obtained from the 5-Portuguese sheath. An VCF catheter was placed over the wire into the sheath and then the wire was navigated down to the right common femoral artery and the Berenstein catheter was used to catheterize the right external iliac artery and a right pelvic arteriogram was obtained. The wire, catheter and sheath were removed and pressure held for hemostasis. There were no complications. I was present and scrubbed for the entire procedure. INTERPRETATION OF IMAGES: The patient has a widely patent left limb of his EVAR, patent left hypogastric artery and patent left external iliac artery in the proximal aspect of the patch. There is no hemodynamically significant stenoses. Similarly, on the right hand side, the external iliac artery was widely patent and common iliac artery is widely patent. MD JIA Fair/ELDON , 03:11 PM , 03:41 PM
== END 2018-04-23 18:00 | disposition home or self-care (01) ==
LOC: HDOC 10:30 → HDIC 10:31 → HDOC 18:00
PROVIDERS: ATTEND Surgery
DX: I73.9 Peripheral vascular disease, unspecified (principal); M79.662 Pain in left lower leg; M79.661 Pain in right lower leg; I10 Essential (primary) hypertension; E11.9 Type 2 diabetes mellitus without complications; I25.10 Atherosclerotic heart disease of native coronary artery without angina pectoris; Z85.118 Personal history of other malignant neoplasm of bronchus and lung; Z95.1 Presence of aortocoronary bypass graft; Z87.891 Personal history of nicotine dependence; Z79.82 Long term (current) use of aspirin; Z79.84 Long term (current) use of oral hypoglycemic drugs
CPT/HCPCS: 36246; 75716; 80048; 99152; C1769; C1887; C1893; J1644; J2250; J3010; Q9967